=== PATIENT | male | born 1940 | race Caucasian/White ===

== ENCOUNTER → 2018-09-13 10:54 | Outpatient (CLI) | payer MEDICARE, BC | END | disposition home or self-care (01) | LOC: D.RAD 10:54 | DX: J44.9 Chronic obstructive pulmonary disease, unspecified (principal) ==

== ENCOUNTER 2020-11-16 13:31 | Inpatient (IN) | payer MEDICARE, BC ==
[~2020-11-16] VITALS: Ht 172.7 cm; Wt 101.9 kg
--- NOTE | ~2020-11-16 | HEMODYNAMI ---
PATIENT:YOVANA FIGUEROA MEDICAL RECORD: [id number] : 36 LOCATION: [id number] ADMISSION DATE: 11/17/20 Generatedon:114:43 Patient name: YOVANA FIGUEROA Patient #: [id number] SSN: D OB: 1940 Date of study: 11/18/2020 Page: Of Hemodynamic Procedure Report Patient Data Patient Demographics Procedure consent was obtained First Name: YOVANA Gender: Male Last Name: HENRY : 1940 Middle Initial: Anitra Age: 80 year(s) Patient #: [id number] Race: Unknown Additional ID: [id number] Contact details [address]: [address] [place] [address] State: [place] City: [place] Zip code: [address] Past Medical History Allergies: No known allergies Admission Admission Data Admission Date: 11/17/2020 Admission Time: 19:45 Room #: D.2240 Lab Results Lab Result Date: 11/18/2020 Lab Result Time: 0:00 Biochemistry Name Units Result Min Max BUN mg/dl 21 --(----)-* 7 18 Creatinine mg/dl 1.1 --(--*-)-- 0.6 1.3 eGFR ml/min 67.57849 *-(----)-- 90 120 NONAFRICAN CBC Name Units Result Min Max Hemoglobin g/dl 11.1 *-(----)-- 13.5 17.5 Procedure Procedure Types Cath Procedure Diagnostic Procedure LHC LHC w/Coronaries FFR/IVUS FFR Initial Sedation Charges Moderate Sedation 25-39 minutes PCI Procedure Hemochron ACT Test Procedure Description Procedure Date Procedure Date: 11/18/2020 Procedure Start Time: 14:13 Procedure End Time: 14:40 Procedure Staff Name Function Yeimi Echavarria RT Monitor Larisa Noel RT Scrub Yovani Christianson MD Performing Physician Shameka Heard RN Nurse Procedure Data Cath Procedure Fluoroscopy Diagnostic fluoroscopy Total fluoroscopy Time: 4.8 time: 4.8 min min Diagnostic fluoroscopy Total fluoroscopy dose: 784 dose: 784 mGy mGy Contrast Material Contrast Material Type Amount (ml) Isovue 300 79 Entry Location Entry Primary Successful Side Size Upsize 1 Upsize Entry Closure Velez ccessful Closure Location (Fr) (Fr) 2 (Fr) Remarks Device Remarks Femoral Right 5 Fr 6 Fr 6 Fr Exoseal artery Mid-Length Short Estimated blood loss: 10 ml Diagnostic catheters Device Type Used For End Catheter Placement MULTIPACK JL 4.0 5Fr Procedure catheter MULTIPACK 3DRC 5Fr Procedure catheter MULTIPACK Pigtail 5 Fr Ventriculography catheter Procedure Complications No complications Procedure Medications Medication Administration Route Dosage Oxygen etCO2 Nasal cannula 2 l/min Lidocaine 2% added to field 20 Heparin Flush Bag added to field 2 bags (1000units/500ml NS) 0.9% NaCl I.V. 100 ml/hr Versed I.V. 1 mg Fentanyl I.V. 50 mcg Versed I.V. 1 mg Fentanyl I.V. 50 mcg Heparin Bolus I.V. 3000 units Versed I.V. 1 mg Hemodynamics Rest HGB: 11.1 (g/dl) Heart Rate: 84 (bpm) Pressure Samples Time Site Value (mmHg) Purpose Heart Use Rate(bpm) 14:21 LV 97/19,22 Snapshot 82 Gradients Valve Time Site Site Mean SEP/DFP Peak To Heart Use 1 2 (mmHg) (sec/min) Peak Rate (mmHg) (bpm) Aortic 14:21 LV AO 82 Snapshots Pre Cath Intra NCS Post Cath Vital Signs Time Heart Resp SPO2 etCO2 NIBP (mmHg) Rhythm Pain Sedation Rate (ipm) (%) (mmHg) Status Level (bpm) 13:52:57 83 13 95 0 124/77(118) Paced 0 (11) 10(A) , No pain 13:58:20 78 17 95 0 130/94(120) Paced 0 (11) 10(A) , No pain 14:02:36 79 24 94 0 118/74(98) Paced 0 (11) 10(A) , No pain 14:06:52 82 14 93 15.8 107/66(99) Paced 0 (11) 10(A) , No pain 14:11:06 83 14 96 12 115/63(91) Paced 0 (11) 9(A) , No pain 14:15:18 82 11 97 16.6 116/81(91) Paced 0 (11) 9(A) , No pain 14:19:26 77 11 98 24.9 127/110(119) Paced 0 (11) 9(A) , No pain 14:23:40 77 21 99 24.9 133/78(108) Paced 0 (11) 9(A) , No pain 14:28:00 82 15 99 0.7 130/84(106) Paced 0 (11) 9(A) , No pain 14:32:16 89 12 99 12.8 124/74(84) Paced 0 (11) 9(A) , No pain 14:36:28 78 15 99 0.7 130/80(118) Paced 0 (11) 10(A) , No pain 14:40:44 82 16 99 12 138/89(113) Paced 0 (11) 10(A) , No pain Medications Time Medication Route Dose Verified Delivered Reason Notes Effectiveness by by 13:58:24 Oxygen etCO2 2 Yovani Shameka used for Nasal l/min St Dhruv Heard RN procedure cannula 13:58:30 Lidocaine 2% added 20ml Yovani Yovani for local to vial [facility] anesthetic field MD HOLDER 13:58:36 Heparin Flush added 2 Yovani Yovani used for Bag to bags [facility] procedure (1000units/500ml field MD HOLDER NS) 13:58:48 0.9% NaCl I.V. 100 Yovani Shameka Per physician ml/hr St Dhruv Heard RN, MD 14:06:33 Versed I.V. 1 mg Yovani Marco Antonioie for sedation St Dhruv Heard RN, MD 14:06:39 Fentanyl I.V. 50 Yovani Buffie for sedation mcg St Dhruv Heard RN, MD 14:12:59 Versed I.V. 1 mg Yovani Buffie for sedation St Dhruv Heard RN, MD 14:13:05 Fentanyl I.V. 50 Yovani Marco Antonioie for sedation mcg St Dhruv Heard RN, MD 14:25:56 Heparin Bolus I.V. 3000 Yovani Buffie for verif ied units St Dhruv Heard RN anticoagulation with dr MD walters 14:30:24 Versed I.V. 1 mg Yovani Bernardie for sedation St Dhruv Heard RN, MD Procedure Log Time Note 13:22:46 Informed consent obtained and on chart 13:23:07 Procedure Status Urgent Heart Cath (IP). 13:23:08 Time tracking: Regular hours (M-F 7:00 - 5:00) 13:23:12 Plan of Care:Hemodynamics will remain stable., Cardiac rhythm will remain stable., Comfort level will be maintained., Respiratory function will remain adequate., Patient/ family verbilizes understanding of procedure., Procedure tolerated without complication., Recovers from procedure without complications.. 13:23:15 Shameka Heard RN sent for patient. Start room use. 13:50:00 Patient received from Med/Surg to CCL 1 Alert and oriented. Tansferred to table in Supine position. 13:50:01 Warm blankets applied, and leigh ann hugger turned on for patient comfort. 13:50:02 Correct patient and procedure confirmed by team. 13:50:03 ECG and BP/O2 sat monitors applied to patient. 13:51:50 Vital chart was started 13:58:24 Oxygen 2 l/min etCO2 Nasal cannula was administered by Shameka Heard RN; used for procedure; Verbal order read back and verified. 13:58:30 Lidocaine 2% 20ml vial added to field was administered by Yovani Christianson MD; for local anesthetic; Verbal order read back and verified. 13:58:36 Heparin Flush Bag (1000units/500ml NS) 2 bags added to field was administered by Yovani Christianson MD; used for procedure; Verbal order read back and verified. 13:58:48 0.9% NaCl 100 ml/hr I.V. was administered by Shameka Heard RN; Per physician; Verbal order read back and verified. 13:59:46 Baseline sample Acquired. 14:00:23 Baseline sample Acquired. 14:00:29 Rhythm: paced 14:00:31 Full Disclosure recording started 14:01:11 H&P Date Dictated: 11/16/2020 Within 30 days and on chart., H&P Addendum completed by physician on day of procedure. (MUST COMPLETE FOR ALL OUTPATIENTS). 14:01:14 Pre-procedure instructions explained to patient. 14:01:17 Family unavailable. 14:01:19 Patient NPO since Midnight. 14:01:26 Patient allergic to No known allergies 14:01:29 Is the patient allergic to Iodine/contrast media? No. 14:01:32 Was the patient premedicated? Yes 14:02:41 Is patient on blood thinner?No 14:02:46 Patient diabetic? Yes. 14:02:51 If diabetic: On Metformin? No 14:02:56 Snore? Yes 14:02:58 Sleep apnea? Yes 14:03:18 Airway obstruction? Yes COPD 14:03:27 Dentures? Unknown ? 14:03:43 Patient pain scale 0/10 indigestion. 14:03:50 IV patent on arrival in left forearm with 0.9% NaCl at [facility]. 14:: Lab Result : BUN 21 mg/dl 14:: Lab Result : Creatinine 1.1 mg/dl 14:: Lab Result : eGFR NONAFRICAN 67.10469 ml/min 14:: Lab Result : Hemoglobin 11.1 g/dl 14::33 Lab results completed and on chart. 14:04:39 Right groin area was prepped with chlora-prep and draped in sterile fashion 14:04:40 Alarms reviewed by RHussein N. 14:04:41 Sharps counted by scrub and verified by R.N. 14:04:43 Physician arrived 14:04:43 --------ALL STOP TIME OUT------ 14:04:44 Final Timeout: patient, procedure, and site verified with staff and physician. All members of the team are in agreement. 14:05:01 Right groin site verified by team. 14:05:05 Fire Safety Assessment: A--An alcohol-based skin anteseptic being used preoperatively., C--Open oxygen or nitrous oxide is being used., D--An ESU, laser, or fiber-optic light is being used. 14:05:17 Physical assessment completed. ASA score P 3 - A patient with severe systemic disease as per Yovani Christianson MD. 14:05:20 2) 60-89 Mildly reduced kidney function, and other findings (as for stage 1) point to kidney disease. 14:06:33 Versed 1 mg I.V. was administered by Shameka Heard RN; for sedation; Verbal order read back and verified. 14:06:39 Fentanyl 50 mcg I.V. was administered by Shameka Heard RN; for sedation; Verbal order read back and verified. 14:12:59 Versed 1 mg I.V. was administered by Shameka Heard RN; for sedation; Verbal order read back and verified. 14:13:05 Fentanyl 50 mcg I.V. was administered by Shameka Heard RN; for sedation; Verbal order read back and verified. 14:13:07 Maximum allowable contrast dose (3.7 X eGFR X 0.75)188 ml. 14:13:12 Sedation plan: IV Moderate Sedation Medication:Versed, Fentanyl 14:13:16 Use device set Femoral Dx 14:13:19 Procedure started. 14:13:24 Local anesthetic to right femoral artery with Lidocaine 2% by Yovani Christianson MD.INITIAL ACCESS ONLY 14:13:33 A 5 Fr sheath was inserted into the Right Femoral artery 14:13:47 ACIST Syringe (27668) opened to sterile field. 14:13:48 Bag Decanter (2002S) opened to sterile field. 14:13:48 Medline Cath Pack ([id number]) opened to sterile field. 14:13:49 ACIST Hand Control (65666) opened to sterile field. 14:13:50 ACIST Manifold (38722) opened to sterile field. 14:13:50 DIAGNOSTIC Multipack 5Fr catheter set (MX1446) opened to sterile field. 14:13:51 Tegaderm 4 x 4 (1626W) opened to sterile field. 14:13:53 SHEATH 5FR Brinson (FSV141) opened to sterile field. 14:13:54 EMERALD Guide Wire (259-229) opened to sterile field. 14:13:59 J wire advanced. 14:14:15 A MULTIPACK JL 4.0 5Fr catheter was advanced over the wire and used for Procedure. 14:14:19 LCA angiography performed. 14:17:13 A MULTIPACK 3DRC 5Fr catheter was advanced over the wire and used for Procedure. 14:17:16 RCA angiography performed. 14:20:00 Catheter removed. 14:20:08 A MULTIPACK Pigtail 5 Fr catheter was advanced over the wire and used for Ventriculography. 14:21:48 EF : 40 % 14:21:54 LV hemodynamics recorded. 14:22:04 Proceeding to intervention. 14:25:56 Heparin Bolus 3000 units I.V. was administered by Shameka Heard RN; for anticoagulation; verified with dr walters Verbal order read back and verified. 14:26:14 SHEATH 6FR Brinson (UKS506) opened to sterile field. 14:26:14 SHEATH 6FR Destination (RSR01) opened to sterile field. 14:26:16 GUIDE 6FR XBLAD 3.5 catheter ([id number]) opened to sterile field. 14:26:17 INFLATOR Merit BasixCompak (XA2951) opened to sterile field. 14:26:45 Sheath upsized to a 6 Fr Mid-Length. 14:26:51 6 Fr xblad guide catheter was inserted over the wire 14:27:12 Enmotus PressureWire X (P45006) opened to sterile field. 14:27:33 IVUS pass to Circ lesion performed. 14:27:45 Wire advanced across lesion. 14:30:24 Versed 1 mg I.V. was administered by Shameka Heard RN; for sedation; Verbal order read back and verified. 14:34:29 mCirc lesion measured at 1.02 with IFR 14:34:32 Wire removed. 14:34:35 Guide Catheter removed. 14:34:46 Sheath upsized to a 6 Fr Short. 14:35:37 Sheath removed intact; hemostasis achieved with Exoseal to the Right Femoral artery. 14:35:46 EXOSEAL 6Fr (EX600) opened to sterile field. 14:35:49 Procedure ended.(Physican Out) 14:36:15 Fluoroscopy time 04.80 minutes. 14:36:19 Fluoroscopy dose: 784 mGy 14:36:19 Flurop Dose total: 784 14:36:25 Dose Area Product 02670 mGy/cm. 14:36:30 Contrast amount:Isovue 300 79ml. 14:36:43 Maximum allowable dose exceeded? No. 14:36:45 Sharps counted by scrub and verified by R.N. 14:36:46 Insertion/operative site no bleeding no hematoma. 14:36:53 Post right femoral artery:stable 14:37:05 Post-procedure physical assessment completed. ASA score P 2 - A patient with mild systemic disease as per Yeimi Echavarria RT(R). 14:37:08 Post procedure rhythm: unchanged. 14:37:12 Estimated blood loss: 10 ml 14:37:14 Post procedure instruction explained to patient.Patient verbalizes understanding. 14:38:47 Procedure type changed to Cath procedure, Diagnostic procedure, LHC, LHC w/Coronaries, FFR/IVUS, FFR Initial, Sedation Charges, Moderate Sedation 25-39 minutes, PCI procedure, Hemochron ACT Test 14:39:02 ACT drawn and resulted at 159 seconds. (normal therapeutic range 180-240 seconds). 14:39:33 Procedure and supply charges have been captured, reviewed, submitted and are correct. 14:39:54 Procedure and supply charges have been captured, reviewed, submitted and are correct. 14:40:07 Procedure Complication : No complications 14:40:09 Vital chart was stopped 14:40:19 [facility] Findings: mild to moderate CAD (<70%) 14:40:25 Report given to Pre/Post Procedure Room. 14:40:27 Patient transfered to Pre/Post Procedure Room with Stretcher. 14:40:29 Procedure ended. 14:40:29 Full Disclosure recording stopped 14:40:34 End room use (Document Last) 14:43:29 End room use (Document Last) Device Usage Item Name Manufacture Quantity Catalog Hospital Part Current Minim al Lot# / Number Charge Number Stock Stock Serial# Code ACIST Acist 1 57636 589419 716918 105835 20 Syringe Medical (19425) Systems Inc Bag Decanter Microtek 1 2002S 511556 43746 321222 5 (2001S) Medical Inc. Medline Cath Medline 1 [id number] 771597 40274 332773 5 Pack ([id number]) ACIST Hand Acist 1 03962 720179 315137 757377 5 Control Medical (44163) Systems Inc ACIST Acist 1 82433 381275 178549 770286 5 Manifold Medical (66797) Systems Inc DIAGNOSTIC Cardinal 1 UL0219 751656 12495 243252 30 Multipack Health 5Fr catheter set (NY3214) Tegaderm 4 x 3M 1 1626W 957475 715711 175307 5 4 (1626W) SHEATH 5FR Terumo 1 ADC417 609469 754507 202872 5 Brinson (GUT134) EMERALD Cardinal 1 502-455 468629 176646 443573 5 Guide Wire ParkWhiz (502-455) MULTIPACK JL Cardinal 1 186362 5 4.0 5Fr Health catheter MULTIPACK Cardinal 1 075560 5 3DRC 5Fr Health catheter MULTIPACK Cardinal 1 100935 5 Pigtail 5 Fr Health catheter SHEATH 6FR Terumo 1 LYV296 210387 550102 058005 40 Brinson (RVB374) SHEATH 6FR Terumo 1 RSR01 548545 33806 286311 5 Destination (RSR01) GUIDE 6FR Cardinal 1 [id number] 887929 606576 754949 10 XBLAD 3.5 Health catheter ([id number]) INFLATOR [facility] 1 KM5835 804984 707345 875394 15 [facility] Medical BasixCompak (AP6035) Guerrero Guerrero 1 X15293 912481 728177699 99221 5 78966V8 PressureWire Vascular X (H81974) EXOSEAL 6Fr Cardinal 1 EX600 927306 093600 044544 10 (EX600) Health Signature Audit [place] Stage Time Signature Unsigned Intra-Procedure 11/18/2020 Yeimi Echavarria 2:39:54 PM RT(R) Intra-Procedure 11/18/2020 Shameka Heard RN 2:43:29 PM Intra-Procedure 11/18/[address] 2:43:50 PM Dhruv HOLDER [facility] [address] [place] [address]
[~2020-11-16 13:31] MED LIST: ALBUTEROL SULF8.5 GM INH; BAYER CHEWABLE81 MG PO; GLIMEPIRIDE4 MG PO; HYDRALAZINE HCL10 MG PO; HYDROCHLOROTHIA25 MG PO; K-TAB10 MEQ PO; LANTUS INS100 UNITS/ SC; LASIX40 MG PO; LEVAQUIN750 MG PO; LIPITOR10 MG PO; LYRICA75 MG PO; MAG-OX 400 MG400 MG PO; METOPROLOL TART50 MG PO; MUCINEX DM ER1 EAC1 PO; NORVASC5 MG PO; OMNICEF300 MG PO; PRADAXA150 MG PO; PRINIVIL10 MG PO; TESSALON PERLE100 MG PO; TRADJENTA5 MG PO; VITAMIN D50000 UNI1 PO; ZOLOFT50 MG PO; ZYLOPRIM100 MG PO
[2020-11-16 14:36] LABS: BASOPHILS 0.6 % (0-2); EOSINOPHILS 3.5 % (0-7); HEMATOCRIT 38.8 % (42.0-54.0); HEMOGLOBIN 12.6 g/dL (13.5-17.5); IMMATURE GRANULOCYTES 0.2 % (0-5); LYMPHOCYTE ABS# 1.93 10x3/uL (1.32-3.57); MCHC 32.5 g/dL (31.0-37.0); MCV 95.6 fL (80.0-100.0); MEAN PLATELET VOLUME 10.7 fL (7.4-10.4); MONOCYTES 8.2 % (2-11); NEUTROPHIL ABS# 5.73 10x3/uL (1.78-5.38); NEUTROPHILS 65.5 % (40-80); PLATELET COUNT 165 10x3/uL (130-400); RBC 4.06 10x6/uL (4.20-6.10); RDW 14.5 % (11.5-14.5); WBC 8.8 10x3/uL (4.8-10.8)
[2020-11-16 15:09] LABS: APTT 53.7 SECONDS (22.8-39.4); INR 1.51 (0.85-1.17); PROTIME 16.9 SECONDS (11.6-15.0)
[2020-11-16 15:24] LABS: D-DIMER-QUANTITATIVE 1.74 ug/mLFEU (0.20-0.54)
[2020-11-16 15:32] LABS: CALC OSMOLALITY 290 mosm/kg (275-300); CALCIUM 8.9 mg/dL (8.5-10.1); CARBON DIOXIDE 26.8 mmol/L (21.0-32.0); CHLORIDE - SERUM 105 mmol/L (98-107); CREATININE - SERUM 1.1 mg/dL (0.6-1.3); GLUCOSE 157 mg/dL (74-106); POTASSIUM - SERUM 3.9 mmol/L (3.5-5.1); SODIUM 143 mmol/L (136-145); UREA NITROGEN 20 mg/dL (7-18); eGFR NON AFRICAN AMERICAN 68 mL/min (90-120)
[2020-11-16 15:49] LABS: ALBUMIN 3.6 g/dL (3.4-5.0); ALKALINE PHOSPHATASE 64 U/L (30-120); ALT (SGPT) 27 U/L (10-68); BILIRUBIN - TOTAL 0.64 mg/dL (0.2-1.3); CKMB 1.2 U/L (0.0-3.6); CREATINE KINASE 139 UL (21-232); MAGNESIUM - SERUM 2.1 mg/dL (1.8-2.4); PROTEIN - SERUM 7.4 g/dL (6.4-8.2)
[2020-11-16 15:50] LABS: TROPONIN-I < 0.017 ng/mL (0.000-0.060)
[2020-11-16 16:12] LABS: CKMB 1.2 U/L (0.0-3.6); CREATINE KINASE 129 UL (21-232)
[2020-11-16 16:18] LABS: TROPONIN-I < 0.017 ng/mL (0.000-0.060)
--- NOTE | 2020-11-16 20:00 | NUR ---
PT NOT IN ROOM AT THIS TIME
[2020-11-16 21:03] LABS: CKMB 1.1 U/L (0.0-3.6); CREATINE KINASE 141 UL (21-232)
[2020-11-16 21:08] LABS: TROPONIN-I < 0.017 ng/mL (0.000-0.060)
--- NOTE | 2020-11-16 21:15 | NUR ---
PHARMACY NOTIFIED OF A FEW MEDS NOT ON FLOOR OR IN PYXIS
[2020-11-16 21:30] VITALS: BP 129/106
--- NOTE | 2020-11-16 21:30 | NUR ---
ASSESSMENT PER FLOW SHEET, VS OBTAINED, SALINE LOCK IN LEFT AC INTACT WITH NO REDNESS OR EDEMA, PT DENIES PAIN, INFORMED PT THAT I WILL ADM WHAT MEDS I HAVE AND THE REST WHEN I GET THEM FROM THE PHARMACY
--- NOTE | 2020-11-16 21:49 | NUR ---
OBTAINED FSBS AND ADM SOME 2100 MEDS PER MD ORDERS, SEE EMAR
--- NOTE | 2020-11-16 22:22 | NUR ---
EKG OBTAINED PER MITCHELL TOURE
--- NOTE | 2020-11-16 22:41 | NUR ---
PT AWAKE, ADM THE REST OF 2100 MEDS PO, CARISA YANEZ (TRAVELER NURSE), ADM INSULIN, PT UP TO BR VIA CANE WITH ASSISTANCE, VOIDED AND HAD A BM, PT BACK TO BED, PILLOW AND BLANKET PROVIDED, PT DENIES FURTHER NEEDS OR PAIN
[2020-11-17] VITALS (7 sets, daily range): BP systolic 112–142; BP diastolic 64–89; BMI 33.4
--- NOTE | 2020-11-17 00:02 | NUR ---
PT RESTING WITH EYES CLOSED, RESP QUIET, NO DISTRESS NOTED, LEFT UNDISTURBED AT THIS TIME
[2020-11-17 03:56] LABS: BASOPHILS 0.7 % (0-2); EOSINOPHILS 3.3 % (0-7); HEMATOCRIT 36.7 % (42.0-54.0); HEMOGLOBIN 11.7 g/dL (13.5-17.5); IMMATURE GRANULOCYTES 0.2 % (0-5); LYMPHOCYTES 24.6 % (15-50); MCH 30.7 pg (26.0-34.0); MCHC 31.9 g/dL (31.0-37.0); MCV 96.3 fL (80.0-100.0); MEAN PLATELET VOLUME 11.2 fL (7.4-10.4); MONOCYTES 9.5 % (2-11); NEUTROPHILS 61.7 % (40-80); PLATELET COUNT 163 10x3/uL (130-400); RBC 3.81 10x6/uL (4.20-6.10); RDW 14.4 % (11.5-14.5); WBC 8.1 10x3/uL (4.8-10.8)
[2020-11-17 04:16] LABS: ALBUMIN 3.3 g/dL (3.4-5.0); ALKALINE PHOSPHATASE 61 U/L (30-120); ALT (SGPT) 25 U/L (10-68); BILIRUBIN - TOTAL 0.61 mg/dL (0.2-1.3); CALC OSMOLALITY 288 mosm/kg (275-300); CALCIUM 8.4 mg/dL (8.5-10.1); CARBON DIOXIDE 27.9 mmol/L (21.0-32.0); CHLORIDE - SERUM 106 mmol/L (98-107); CKMB 1.1 U/L (0.0-3.6); CREATINE KINASE 116 UL (21-232); CREATININE - SERUM 1.2 mg/dL (0.6-1.3); GLUCOSE 118 mg/dL (74-106); MAGNESIUM - SERUM 2.1 mg/dL (1.8-2.4); POTASSIUM - SERUM 3.8 mmol/L (3.5-5.1); PROTEIN - SERUM 6.8 g/dL (6.4-8.2); SODIUM 143 mmol/L (136-145); UREA NITROGEN 20 mg/dL (7-18); eGFR NON AFRICAN AMERICAN 61 mL/min (90-120)
--- NOTE | 2020-11-17 04:16 | NUR ---
EKG OBTAINED PER MITCHELL TOURE
[2020-11-17 04:18] LABS: TROPONIN-I < 0.017 ng/mL (0.000-0.060)
--- NOTE | 2020-11-17 06:58 | NUR ---
SHIFT REPORT TO DAY SHIFT
[2020-11-17 10:46] LABS: CKMB 1.6 U/L (0.0-3.6); CREATINE KINASE 125 UL (21-232); TROPONIN-I < 0.017 ng/mL (0.000-0.060)
[2020-11-17 16:01] LABS: CHOL - HDL RATIO 2.1 ratio (2.3-4.9); LDL-HDL RATIO 0.7 ratio (1.5-3.5)
--- NOTE | 2020-11-17 22:26 | NUR ---
PT MOVED TO INPATIENT HOSPITAL BED AT THIS TIME AND ASSISTED TO A POSITION OF COMFORT. PT PROVIDED WITH LEMON ALTURAS SODA AND BOWEN CRACKERS UPON REQUEST. PT DENIES OTHER COMPLAINTS AT THIS TIME. NO ACUTE DISTRESS NOTED, BED IN LOWEST POSITION, CALL LIGHT GIA REACH.
[2020-11-18 01:00] VITALS: BP 146/97
[2020-11-18 04:00] VITALS: BP 119/71
[2020-11-18 04:22] VITALS: BP 119/71; Ht 172.7 cm; Wt 101.9 kg
[2020-11-18 07:00] VITALS: BP 142/82
[2020-11-18 07:06] LABS: ALBUMIN 3.3 g/dL (3.4-5.0); ANION GAP 10.5 mmol/L (8-16); BILIRUBIN - TOTAL 0.78 mg/dL (0.2-1.3); CALCIUM 8.5 mg/dL (8.5-10.1); CARBON DIOXIDE 30.8 mmol/L (21.0-32.0); CREATININE - SERUM 1.1 mg/dL (0.6-1.3); MAGNESIUM - SERUM 1.8 mg/dL (1.8-2.4); POTASSIUM - SERUM 3.3 mmol/L (3.5-5.1); PROTEIN - SERUM 6.6 g/dL (6.4-8.2)
--- NOTE | 2020-11-18 07:07 | NUR ---
Patient came from ED, alert and oriented, surgical bath and clipped for heart cath today, denied pain, he is currently resting in bed with his eyes closed.
[2020-11-18 07:18] LABS: BASOPHILS 0.6 % (0-2); EOSINOPHILS 4.7 % (0-7); HEMOGLOBIN 11.1 g/dL (13.5-17.5); IMMATURE GRANULOCYTES 0.1 % (0-5); LYMPHOCYTE ABS# 1.51 10x3/uL (1.32-3.57); LYMPHOCYTES 21.7 % (15-50); MCH 30.6 pg (26.0-34.0); MCHC 31.7 g/dL (31.0-37.0); MCV 96.4 fL (80.0-100.0); MEAN PLATELET VOLUME 10.9 fL (7.4-10.4); MONOCYTES 9.1 % (2-11); NEUTROPHIL ABS# 4.43 10x3/uL (1.78-5.38); NEUTROPHILS 63.8 % (40-80); PLATELET COUNT 139 10x3/uL (130-400); RBC 3.63 10x6/uL (4.20-6.10); RDW 14.4 % (11.5-14.5)
[2020-11-18 08:17] VITALS: BP 141/82
[2020-11-18 12:56] VITALS: BP 117/79
--- NOTE | 2020-11-18 14:55 | NUR ---
PT ARRIVED BY STRETCHER. PLACED ON MONITORS. ASSESSMENT COMPLETED. VSS AT THIS TIME. CALL LIGHT WITHIN REACH.
--- NOTE | 2020-11-18 15:10 | NUR ---
R GROIN SITE SOFT, NO S/S BLEEDING OR HEMATOMA, R LEG/FOOT WARM WITH PALP PULSES AND CAP REFILL WNL. PT TALKING ON PHONE, DENIES PAIN OR NEEDS. VSS. ALARMS ON AND C/L IN REACH.
--- NOTE | 2020-11-18 15:12 | NUR ---
[employer] HERE, STATES THAT PATIENT IS GOING TO [employer] [facility], AND THEN WILL BE DISCHARGED HOME, CATH WAS CLEAN TODAY
--- NOTE | 2020-11-18 15:40 | NUR ---
R GROIN SITE SOFT, NO S/S BLEEDING OR HEMATOMA. PULSES PALP. VSS. ALARMS ON AND C/L IN REACH.
--- NOTE | 2020-11-18 15:53 | NUR ---
I SPOKE WITH PTS SRIRAM RE: DISCHARGE INSTRUCTIONS AND PLAN FOR PT TO D/C AT 1700.
--- NOTE | 2020-11-18 16:00 | NUR ---
R GROIN EXOSEAL SITE C/D/I, NO S/S BLEEDING OR HEMATOMA. PULSES PALP. PT UPDATED ON PLAN OF CARE AND DISCHARGE PLAN. VSS. ALARMS ON AND C/L IN REACH.
--- NOTE | 2020-11-18 16:15 | NUR ---
R GROIN SITE SOFT, NO S/S BLEEDING OR HEMATOMA. PULSES PALP. HOB ELEVATED. SANDWICH AND COFFEE PROVIDED. ALARMS ON AND C/L IN REACH.
[2020-11-18] MEDS ORDERED: ALDACTONE25 MG PO (16:27)
--- NOTE | 2020-11-18 16:46 | NUR ---
ALL DISCHARGE INSTRUCTIONS, INCLUDING RESTRICTIONS, MEDS (ALDACTONE PRESCRIPTIONS IN FOLDER) AND F/U APPTS. PT VERBALIZES UNDERSTANDING. PIV D/C'D INTACT, DSG APPLIED. PT ALLOWED UP TO GET DRESSED AND GO TO BR INDEPENDENTLY.
--- NOTE | 2020-11-18 17:00 | NUR ---
PT GIVEN COFFEE AND SHERBERT. HE SAID HE HAD A RAMSEY SHIRT, IT IS NOT IN BELONGINGS BAG, FLOOR NURSE DID NOT SEE IT PRIOR TO THE ROOM BEING CLEANED, I SPOKE WITH AND SHE SAID SHE HAD TAKEN IT HOME. PT HAS HIS HOME CPAP MACHINE, BLACK WALKER, HOUSE SHOES, PJ PANTS, CELL PHONE AND CERTIFIED OPHTHALMIC MEDICAL TECHNICIAN.
--- NOTE | 2020-11-18 17:10 | NUR ---
PT DC'D VIA WC TO PRIVATE VEHICLE WITH ALL PAPERWORK AND BELONGINGS. ALL DISCHARGE INSTRUCTIONS REVIEWED WITH AT CAR.
--- NOTE | 2020-11-18 17:11 | MORECARE ---
CASE MANAGEMENT DISCHARGE SUMMARY PATIENT: YOVANA FIGUEROA UNIT: [id number] ADM DATE: 11/17/20 AGE: 80 : 38 SEX: M ROOM/BED: D.03 AUTHOR: SINA OCHOA PHYSICIAN: REFERRING PHYSICIAN: PALOMO PURDY DO DATE OF SERVICE: 11/18/20 Discharge Plan Patient Name: YOVANA FIGUEROA [facility] 1940 Planned Disposition: Home Anticipated Discharge Date: 11/18/20 Discharge Date: Expected LOS: 1 Initial Reviewer: [email or web address] Initial Review Date: 11/16/2020 Generated: 11/18/20 6:10 pm Comments DCP- Discharge Planning Updated by [email or web address]: Misty Abel on 11/18/20 4:[address] PATIENT WAS SCHEDULED FOR CARDIAC CATH THIS EARLY PM. REPORTEDLY HIS CARDIAC CATH WAS CLEAR. THEREFORE HE WAS DISCHARGED FROM RECOVERY IN THE ASSOCIATE CHIEF NURSE. Patient Name: YOVANA FIGUEROA Page [phone] at 1711 All edits/amendments must be made on the electronic document DICTATION DATE: 11/18/201710 MALE INFERTILITY SPECIALIST: VALENTIN 11/18/201710 RPT#: [id number] DC DATE: STATUS: ADM IN [facility] [address] [place] [address] END OF REPORT
--- NOTE | 2020-11-22 08:50 | ST ---
PATIENT:YOVANA FIGUEROA MEDICAL RECORD: [id number] SEX: M [facility] ORDER #: ADMISSION DATE: 11/17/20 AGE OF PATIENT: 80 REFERRING PHYSICIAN: INTERPRETING PHYSICIAN: KODY SANABRIA MD DATE OF SERVICE: 11/17/2020 NUCLEAR STRESS TEST GATED IMAGING: Gated imaging was performed. This shows a marked decrease in thickening and global hypokinesis of the left ventricle. EF 31%. SPECT IMAGING: SPECT imaging; short axis view shows a reversible defect along the mid inferior wall down to the inferior apex. This confirmed the horizontal axis, which shows a reversible defect from the mid inferior wall down to the inferior apex. Vertical axis, vertical axis shows good uptake along the septum. FINAL IMPRESSION: 1. Abnormal gated with abnormal wall motion and decreased EF 31%. 2. Abnormal SPECT imaging with reversible defect in the inferior apex. The severity is moderate, defect size is medium. 3. This patient with ongoing symptomatology. The scan is markedly abnormal, consider diagnostic angiography. He is to follow up with the study. TRANSINT:[id number] Voice Confirmation ID: [id number] DOCUMENT ID: [id number] KODY SANABRIA MD at 0850 CC: [id number] DICTATION DATE: 11/17/20 1625 MAP MOUNTER: 11/18/20 0727 DIS IN 11/18/20 [address] [id number] [place] [address]
--- NOTE | 2020-11-22 08:50 | OP ---
PATIENT NAME: YOVANA FIGUEROA MEDICAL RECORD: [id number] :[birth year] [facility] ADMISSION DATE:11/17/20 SURGEON: KODY SANABRIA MD DATE OF OPERATION: 11/18/2020 PROCEDURES: Left heart catheterization, selective coronary angiography, right femoral artery approach, IFR wire of the circumflex. CATHETERS: A 5-English sheath, 5/4 left and right Allen, 5/4 pig. FINDINGS: Left ventriculography in 30-degree FAIRCHILD view; global hypokinesis. Overall LV function reduced at 35%. CORONARY ANATOMY: 1. Left main: Left main is free of disease. 2. LAD: Free of disease in the diagonal system. 3. Circumflex: Circumflex has a questionable stenosis in the mid portion; however, this is not significant IFR wire. 4. Right coronary artery is rudimentary without disease. IMPRESSION AND PLAN: No significant coronary artery disease including via IFR wire, nonischemic cardiomyopathy. Add Aldactone to underlying medical regime. TRANSINT:[id number] Voice Confirmation ID: [id number] DOCUMENT ID: [id number] KODY SANABRIA MD at 0850 CC: [id number] DICTATION DATE: 11/18/20 1446 PLASTIC INJECTION MOLD MAKER: 11/18/20 1715 DIS IN 11/18/20 [facility] [address] [place] [address]
== END 2020-11-18 17:10 | disposition home or self-care (01) | DRG 287 ==
LOC: D.ER 13:31 → OBSVTIME 17:39 → D.EDHOLD 17:39 → D.MS 11-17 19:45 → D.EDHOLD 11-17 19:45 → D.MS 11-17 23:48 → D.CLR 11-18 14:51
PROVIDERS: Family Medicine; Internal Medicine Interventional Cardiology; ADMIT Family Medicine; ATTEND Family Medicine
PROC: B2151ZZ Fluoroscopy of Left Heart using Low Osmolar Contrast (ICD-10-PCS; 2020-11-18)
PROC: 4A023N7 Measurement of Cardiac Sampling and Pressure, Left Heart, Percutaneous Approach (ICD-10-PCS; 2020-11-18)
PROC: B2111ZZ Fluoroscopy of Multiple Coronary Arteries using Low Osmolar Contrast (ICD-10-PCS; principal; 2020-11-18 13:23)
DX: R07.9 Chest pain, unspecified (principal); I42.8 Other cardiomyopathies; J44.0 Chronic obstructive pulmonary disease with (acute) lower respiratory infection; I48.91 Unspecified atrial fibrillation; I08.3 Combined rheumatic disorders of mitral, aortic and tricuspid valves; I11.0 Hypertensive heart disease with heart failure; I50.9 Heart failure, unspecified; G89.29 Other chronic pain; M54.9 Dorsalgia, unspecified; K21.9 Gastro-esophageal reflux disease without esophagitis; Z95.0 Presence of cardiac pacemaker